=== PATIENT | male | born 1960 | race Caucasian/White ===

== ENCOUNTER 2022-08-16 12:09 | Day surgery (SDC) | payer BC ==
[2022-08-16] VITALS (8 sets, daily range): BP systolic 116–140; BP diastolic 82–98
[~2022-08-16] VITALS: Ht 177.8 cm; Wt 118.3 kg
[~2022-08-16 12:09] MED LIST: AMOX1TAB15 PO; FURO-150 PO; GABA300C PO; HYDR-3972 PO; RIVA15TA PO; famotidine 20mg tablet PO ONE; ringers solution, lacted 1,000 ML IV SCH
[2022-08-16] MEDS ORDERED: ceFAZolin inj. 2,000 MG in dextrose 5%-water 100 ML IV ONE (12:35)
[2022-08-16 13:22] LABS: BASOPHILS # (AUTO) 0.1 X10'3 (0-0.2); BASOPHILS % (AUTO) 1.1 % (0-1); EOSINOPHILS % (AUTO) 0.5 % (0-6); LYMPHOCYTES # (AUTO) 1.2 X10'3 (1.1-4.8); LYMPHOCYTES % (AUTO) 13.5 % (21-51); MEAN CORPUSCULAR HGB CONC 32.4 g/dL (33.0-36.5); MEAN CORPUSCULAR VOLUME 98.7 FL (78-98); MEAN PLATELET VOLUME 7.5 FL (7.4-10.4); MONOCYTES % (AUTO) 11.2 % (2-12); NEUTROPHILS # (AUTO) 6.4 X10'3 (1.8-7.7); NEUTROPHILS % (AUTO) 73.7 % (42-75); PRE OP HEMATOCRIT 41.9 % (42.0-52.0); PRE OP HEMOGLOBIN 13.6 g/dL (14.0-17.9); PRE OP PLATELET COUNT 362 X10'3 (140-440); RED BLOOD COUNT 4.24 X10'6 (4.70-6.10); RED CELL DISTRIBUTION WIDTH 15.3 % (11.5-14.5)
[2022-08-16 13:26] LABS: ALBUMIN 2.3 G/DL (3.4-5.0); ALBUMIN/GLOBULIN RATIO 0.5 (1.1-1.5); ALKALINE PHOSPHATASE 88 IU/L (46-116); BLOOD UREA NITROGEN 14 MG/DL (7-18); BUN/CREATININE RATIO 12.7 (5.4-32.0); CALCIUM 8.9 MG/DL (8.5-10.1); CHLORIDE 100 MMOL/L (99-107); PRE OP ALT 19 U/L (30-65); PRE OP ANION GAP 6 (8-16); PRE OP AST 21 U/L (10-37); PRE OP BILIRUB, TOTAL 0.5 MG/DL (0.0-1.0); PRE OP GLUCOSE 119 MG/DL (70-104); PRE OP POTASSIUM 3.9 MMOL/L (3.4-5.1); PRE OP SODIUM 139 MMOL/L (135-145); TOTAL CARBON DIOXIDE 33.3 MMOL/L (24-32); TOTAL PROTEIN 6.9 G/DL (6.4-8.2); eGFR 68 ML/MIN
[2022-08-16] MEDS ORDERED: METO-395 PO (13:27)
[2022-08-16] MEDS ORDERED: bacitracin 15gm ointment TP ONE (14:44)
[2022-08-16] MEDS ORDERED: sevoflurane 250ml liquid IH ONE (14:51)
[2022-08-16] MEDS ORDERED: hydrALAZINE 20mg/ml inj. IV PRN (14:55)
[2022-08-16] MEDS ORDERED: acetaminophen 1,000mg/100ml IV 100 ML IV PRN (14:55)
[2022-08-16] MEDS ORDERED: labetalol 20mg/4ml (5mg/ml) syringe IV PRN (14:55)
[2022-08-16] MEDS ORDERED: morphine 4 MG/ML inj SYRINge IV PRN (14:55)
[2022-08-16] MEDS ORDERED: ringers solution, lacted 1,000 ML IV SCH (14:55)
[2022-08-16] MEDS ORDERED: meperidine/PF 25mg/ml syringe IV PRN ×3 (14:55)
[2022-08-16] MEDS ORDERED: ondansetron/PF 4mg/2ml inj IV PRN (14:55)
[2022-08-16] MEDS ORDERED: proCHLORperazine 10 MG/2 ml inj IV PRN (14:55)
[2022-08-16] MEDS ORDERED: morphine 2 MG/ML inj. syringe IV PRN (14:55)
[2022-08-16] MEDS ORDERED: fentaNYL/PF 50MCG/1 ML 2ML syringe ONE (15:02)
[2022-08-16] MEDS ORDERED: midazolam 1 mg/ML 2ml injection ONE (15:04)
[2022-08-16] MEDS ORDERED: LIDOcaine 2% (20mg/ml) 5ml vial ONE (15:10)
[2022-08-16] MEDS ORDERED: propofol inj 20 ML IV ONE (15:10)
[2022-08-16] MEDS ORDERED: ondansetron/PF 4mg/2ml inj ONE (15:22)
[2022-08-16] MEDS ORDERED: dexamethasone sod phosphate 4mg/ml inj. ONE (15:22)
--- NOTE | 2022-08-16 15:52 | NUR ---
Received from OR via , accompanied by Anesthesiologist DR TAYLOR and report given by Anesthesiolgist. PT PRESENTS WITH 20G RIGHT HAND, LOWER LEFT LEG DRESSING CDI, VSS. Addendum: 08/16/22 at 1559 by Yamilet Aldrich RN, RN Amended: Links added.
--- NOTE | 2022-08-16 16:52 | NUR ---
ALL DISCHARGE CRITERIA HAS BEEN MET. VSS, PAIN AT A TOLERABLE LEVEL, VOIDING AND ABLE TO SAFELY AMBULATE AND TRANSFER SELF. IV TAKEN OUT WITHOUT ANY COMPLICATIONS. ALL DISCHARGE INSTRUCTIONS COVERED WITH PATIENT AND ALL QUESTIONS ANSWERED. PATIENT TAKEN OUT VIA WHEELCHAIR TO PERSONAL VEHICLE WHERE FAMILY/FRIEND DROVE PATIENT HOME. Addendum: 08/16/22 at 1659 by Yamilet Aldrich RN, RN Amended: Links added.
== END 2022-08-16 16:52 | disposition home or self-care (01) ==
LOC: PAS 12:09
PROVIDERS: ATTEND Surgery
DX: I89.8 Other specified noninfective disorders of lymphatic vessels and lymph nodes (principal); L76.32 Postprocedural hematoma of skin and subcutaneous tissue following other procedure; I10 Essential (primary) hypertension; I48.91 Unspecified atrial fibrillation; Z79.899 Other long term (current) drug therapy; Z98.890 Other specified postprocedural states
CPT/HCPCS: 10140; 36415; 80053; 82948; 85025; 87070; 87075; 87077; 87186; 93005; J0690; J1100; J2250; J2405; J2704; J3010; J3490; J7030; J7060; J7120; Z7506; Z7508; Z7512; A4618; A6446; A7000

== ENCOUNTER 2024-05-25 10:41 | Emergency (ER) | payer BC ==
[~2024-05-25] VITALS: Ht 175.3 cm; Wt 62.5 kg
[~2024-05-25 10:41] MED LIST changes: +METO-395 PO; -famotidine 20mg tablet PO ONE; -ringers solution, lacted 1,000 ML IV SCH
[2024-05-25] MEDS: HYDROcodone/acetaminophen 10/325mg tab PO ONE (13:09)
[2024-05-25] MEDS ORDERED: HYDR-3973 PO (14:18)
[2024-05-25 15:01] VITALS: BP 141/99; PULSE 79; RESP 12; TEMP 97.9; O2SAT 97
== END 2024-05-25 15:03 | disposition home or self-care (01) ==
LOC: ER 10:41
DX: M25.552 Pain in left hip (principal); M25.551 Pain in right hip; Z88.8 Allergy status to other drugs, medicaments and biological substances; Z79.2 Long term (current) use of antibiotics; Z79.899 Other long term (current) drug therapy
CPT/HCPCS: 73522; 99284

== ENCOUNTER 2024-09-04 09:46 | Inpatient (IN) | payer BC ==
[2024-09-04] VITALS (18 sets, daily range): BP systolic 118–141; BP diastolic 51–90; PULSE 58–84; RESP 12–20; TEMP 97.5–97.8; O2SAT 95–100
[~2024-09-04] VITALS: Ht 175.3 cm; Wt 113.5 kg
[~2024-09-04 09:46] MED LIST changes: -HYDR-3972 PO
[2024-09-04] MEDS ORDERED: VANCOMYCIN 1,500MG inj. 1,500 MG in normal saline 500ml IV soln 300 ML IV STA (10:47)
[2024-09-04] MEDS: normal saline 1000ml 1,000 ML IV ONE (11:30)
[2024-09-04] MEDS: piperacillin/tazo 4.5gm/100ml 100 ML IV STA (11:30)
[2024-09-04] MEDS: VANCOMYCIN/H2O 1.5g/300mL PB 300 ML IV STA (11:30)
[2024-09-04 11:59] LABS: BASOPHILS # (AUTO) 0.1 X10'3 (0-0.2); BASOPHILS % (AUTO) 0.8 % (0-1); EOSINOPHILS # (AUTO) 0.1 X10'3 (0-0.9); EOSINOPHILS % (AUTO) 1.5 % (0-6); HEMATOCRIT 33.1 % (42.0-52.0); HEMOGLOBIN 10.7 g/dl (14.0-17.9); LYMPHOCYTES # (AUTO) 0.8 X10'3 (1.1-4.8); LYMPHOCYTES % (AUTO) 9.8 % (21-51); MEAN CORPUSCULAR HEMOGLOBIN 31.4 PG (27.0-31.0); MEAN CORPUSCULAR HGB CONC 32.5 g/dL (33.0-36.5); MEAN CORPUSCULAR VOLUME 96.8 FL (78-98); MEAN PLATELET VOLUME 7.5 FL (7.4-10.4); MONOCYTES # (AUTO) 0.7 X10'3 (0-0.9); MONOCYTES % (AUTO) 8.6 % (2-12); NEUTROPHILS # (AUTO) 6.7 X10'3 (1.8-7.7); NEUTROPHILS % (AUTO) 79.3 % (42-75); PLATELET COUNT 451 X10'3 (140-440); RED BLOOD COUNT 3.42 X10'6 (4.70-6.10); RED CELL DISTRIBUTION WIDTH 15.8 % (11.5-14.5); WHITE BLOOD COUNT 8.4 X10'3 (4.5-11.0)
[2024-09-04 12:17] LABS: ALANINE AMINOTRANSFERASE 19 U/L (12-78); ALBUMIN 2.4 G/DL (3.4-5.0); ALBUMIN/GLOBULIN RATIO 0.6 (1.1-1.5); ALKALINE PHOSPHATASE 93 IU/L (46-116); ANION GAP 6 (8-16); ASPARTATE AMINO TRANSFERASE 18 U/L (10-37); BILIRUBIN,TOTAL 0.5 MG/DL (0.1-1.0); BLOOD UREA NITROGEN 16 MG/DL (7-18); BUN/CREATININE RATIO 15.4 (10.0-20.0); CHLORIDE 106 MMOL/L (99-107); CREATININE 1.04 MG/DL (0.60-1.10); GLUCOSE 98 MG/DL (70-104); POTASSIUM 4.2 MMOL/L (3.5-5.1); SODIUM 142 MMOL/L (135-145); TOTAL CARBON DIOXIDE 30.4 MMOL/L (24-32); TOTAL PROTEIN 6.4 G/DL (6.4-8.2); eCRCL 72 ML/MIN; eGFR 72 ML/MIN
[2024-09-04] MEDS: oxyCODONE/APAP 10/325mg tablet PO ONE (12:29)
[2024-09-04] MEDS ORDERED: iohexol 350 MG/ML 50ML vial IV ONE (12:37)
[2024-09-04] MEDS ORDERED: iohexol 350MG/ML 100ml bottle IV ONE (12:37)
[2024-09-04] MEDS ORDERED: potassium Cl 40MEQ/1/2NS 520ml 520 ML IV PRN (12:40)
[2024-09-04] MEDS ORDERED: magnesium sulf-water 4G/100mL 100 ML IV PRN (12:40)
[2024-09-04] MEDS ORDERED: HYDROcodone/acetaminophen 5mg/325mg tablet PO PRN (12:40)
[2024-09-04] MEDS ORDERED: ondansetron/PF 4mg/2ml inj IV PRN ×2 (12:40→15:55)
[2024-09-04] MEDS ORDERED: magnesium sulf-water 2g/50mL 50 ML IV PRN (12:40)
[2024-09-04] MEDS ORDERED: potassium Cl 20 mEq SR tablet PO PRN ×2 (12:40)
[2024-09-04] MEDS ORDERED: morphine 2 MG/ML inj. syringe IV PRN ×2 (12:40→15:55)
[2024-09-04] MEDS ORDERED: acetaminophen 325mg tablet PO PRN ×2 (12:40)
[2024-09-04] MEDS ORDERED: magnesium Cl slow-release 64mg tablet PO PRN (12:40)
[2024-09-04] MEDS ORDERED: BUPR150T8 PO (12:56)
[2024-09-04] MEDS ORDERED: CLOP75TA34 PO (12:56)
[2024-09-04] MEDS ORDERED: FLO0.4C PO (12:57)
[2024-09-04] MEDS ORDERED: THIA50TA10 PO (12:58)
[2024-09-04] MEDS ORDERED: ATOR20TA66 PO (12:58)
[2024-09-04] MEDS ORDERED: sevoflurane 250ml liquid IH ONE (15:18)
[2024-09-04] MEDS ORDERED: midazolam 1 mg/ML 2ml injection ONE (15:25)
[2024-09-04] MEDS ORDERED: LIDOcaine 2% (20mg/ml) 5ml vial ONE (15:46)
[2024-09-04] MEDS ORDERED: ceFAZolin 1000mg inj ONE ×3 (15:46)
[2024-09-04] MEDS ORDERED: rocuronium 10mg/ml inj IV ONE (15:46)
[2024-09-04] MEDS ORDERED: ondansetron/PF 4mg/2ml inj ONE (15:46)
[2024-09-04] MEDS ORDERED: fentaNYL /PF 50mcg/ml 5ml ampule ONE (15:46)
[2024-09-04] MEDS ORDERED: propofol inj 20 ML IV ONE (15:46)
[2024-09-04] MEDS ORDERED: heparin 10,000 units/1 ML INJ ONE (15:50)
[2024-09-04] MEDS ORDERED: iohexol 300 MG/1 ML 50ml polymer ONE (15:51)
[2024-09-04] MEDS ORDERED: hydrALAZINE 20mg/ml inj. IV PRN (15:55)
[2024-09-04] MEDS ORDERED: proCHLORperazine 10 MG/2 ml inj IV PRN (15:55)
[2024-09-04] MEDS ORDERED: meperidine/PF 25mg/ml syringe IV PRN ×3 (15:55)
[2024-09-04] MEDS ORDERED: morphine 4 MG/ML inj SYRINge IV PRN (15:55)
[2024-09-04] MEDS ORDERED: labetalol 20mg/4ml (5mg/ml) syringe IV PRN (15:55)
[2024-09-04] MEDS: heparin 10,000 units/1 ML INJ IV ONE (16:07)
[2024-09-04] MEDS ORDERED: neostigmine methylsulfate 1 MG/ML 10ml vial ONE (16:22)
[2024-09-04] MEDS ORDERED: glycopyrrolate 0.2mg/ml inj ONE (16:22)
[2024-09-04] MEDS: acetaminophen 1,000mg/100ml IV 100 ML IV ONE (16:47)
[2024-09-04] MEDS: oxyCODONE/APAP 10/325mg tablet PO PRN (19:26)
[2024-09-04] MEDS: ringers solution, lacted 1,000 ML IV SCH (19:31)
[2024-09-04] MEDS ORDERED: furosemide 20 MG/2 ML vial IV SCH (20:00)
[2024-09-04] MEDS ORDERED: heparin, porcine 5000 units/ml vial SQ SCH (20:00)
[2024-09-04] MEDS: hydrocortisone 1% cream 28gm TP SCH (22:12)
[2024-09-04] MEDS: morphine 2 MG/ML inj. syringe IV PRN (22:17)
[2024-09-04] MEDS: VANCOMYCIN/WATER FOR INJ (PEG) 1.25GM/250 ML IVPB IV SCH (22:31)
[2024-09-05] VITALS (8 sets, daily range): BP systolic 102–137; BP diastolic 53–90; PULSE 62–77; RESP 16–20; TEMP 97.7–99.6; O2SAT 92–98
[2024-09-05] MEDS: piperacillin/tazo 3.375gm/50ml 50 ML IV SCH (00:56)
[2024-09-05] MEDS: HYDROcodone/acetaminophen 10/325mg tab PO PRN (01:10)
[2024-09-05] MEDS: HALLS - SOOTHE MENTHOL 1.8 MG cough drop LOZENGE MM PRN (02:14)
[2024-09-05 07:31] LABS: BASOPHILS % (AUTO) 0.1 % (0-1); EOSINOPHILS % (AUTO) 0 % (0-6); HEMATOCRIT 32.7 % (42.0-52.0); HEMOGLOBIN 10.3 g/dl (14.0-17.9); LYMPHOCYTES # (AUTO) 0.6 X10'3 (1.1-4.8); LYMPHOCYTES % (AUTO) 4.4 % (21-51); MEAN CORPUSCULAR HEMOGLOBIN 30.6 PG (27.0-31.0); MEAN CORPUSCULAR HGB CONC 31.4 g/dL (33.0-36.5); MEAN CORPUSCULAR VOLUME 97.5 FL (78-98); MEAN PLATELET VOLUME 7.7 FL (7.4-10.4); MONOCYTES # (AUTO) 0.8 X10'3 (0-0.9); MONOCYTES % (AUTO) 5.8 % (2-12); NEUTROPHILS # (AUTO) 11.8 X10'3 (1.8-7.7); NEUTROPHILS % (AUTO) 89.7 % (42-75); PLATELET COUNT 432 X10'3 (140-440); RED BLOOD COUNT 3.35 X10'6 (4.70-6.10); RED CELL DISTRIBUTION WIDTH 15.9 % (11.5-14.5); WHITE BLOOD COUNT 13.1 X10'3 (4.5-11.0)
[2024-09-05 07:49] LABS: ALANINE AMINOTRANSFERASE 13 U/L (12-78); ALBUMIN 2.1 G/DL (3.4-5.0); ALBUMIN/GLOBULIN RATIO 0.6 (1.1-1.5); ALKALINE PHOSPHATASE 74 IU/L (46-116); ANION GAP 5 (8-16); ASPARTATE AMINO TRANSFERASE 19 U/L (10-37); BILIRUBIN,TOTAL 0.4 MG/DL (0.1-1.0); BLOOD UREA NITROGEN 14 MG/DL (7-18); BUN/CREATININE RATIO 12.8 (10.0-20.0); CALCIUM 8.5 MG/DL (8.5-10.1); CHLORIDE 103 MMOL/L (99-107); CREATININE 1.09 MG/DL (0.60-1.10); GLUCOSE 124 MG/DL (70-104); POTASSIUM 4.7 MMOL/L (3.5-5.1); SODIUM 138 MMOL/L (135-145); TOTAL CARBON DIOXIDE 29.9 MMOL/L (24-32); TOTAL PROTEIN 5.8 G/DL (6.4-8.2); eCRCL 68 ML/MIN; eGFR 68 ML/MIN
[2024-09-05] MEDS: rivaroxaban 15mg tablet PO SCH (17:37)
[2024-09-05] MEDS: VANCOMYCIN LEVEL IV ONE (22:30)
[2024-09-06] VITALS (7 sets, daily range): BP systolic 92–110; BP diastolic 48–70; PULSE 59–70; RESP 12–19; TEMP 97.6–98.6; O2SAT 95–98
[2024-09-06 07:22] LABS: BASOPHILS # (AUTO) 0.1 X10'3 (0-0.2); BASOPHILS % (AUTO) 0.6 % (0-1); EOSINOPHILS % (AUTO) 0.3 % (0-6); HEMATOCRIT 32.6 % (42.0-52.0); HEMOGLOBIN 10.6 g/dl (14.0-17.9); LYMPHOCYTES # (AUTO) 1.3 X10'3 (1.1-4.8); LYMPHOCYTES % (AUTO) 13.9 % (21-51); MEAN CORPUSCULAR HEMOGLOBIN 31.6 PG (27.0-31.0); MEAN CORPUSCULAR HGB CONC 32.5 g/dL (33.0-36.5); MEAN CORPUSCULAR VOLUME 97.2 FL (78-98); MEAN PLATELET VOLUME 7.7 FL (7.4-10.4); MONOCYTES % (AUTO) 10.5 % (2-12); NEUTROPHILS % (AUTO) 74.7 % (42-75); PLATELET COUNT 456 X10'3 (140-440); RED BLOOD COUNT 3.36 X10'6 (4.70-6.10); RED CELL DISTRIBUTION WIDTH 15.7 % (11.5-14.5); WHITE BLOOD COUNT 9.3 X10'3 (4.5-11.0)
[2024-09-06 07:26] LABS: ALANINE AMINOTRANSFERASE 11 U/L (12-78); ALBUMIN 2.2 G/DL (3.4-5.0); ALBUMIN/GLOBULIN RATIO 0.6 (1.1-1.5); ALKALINE PHOSPHATASE 77 IU/L (46-116); ANION GAP 4 (8-16); ASPARTATE AMINO TRANSFERASE 17 U/L (10-37); BILIRUBIN,TOTAL 0.3 MG/DL (0.1-1.0); BLOOD UREA NITROGEN 14 MG/DL (7-18); BUN/CREATININE RATIO 12.7 (10.0-20.0); CALCIUM 8.3 MG/DL (8.5-10.1); CHLORIDE 103 MMOL/L (99-107); GLUCOSE 81 MG/DL (70-104); POTASSIUM 4.5 MMOL/L (3.5-5.1); SODIUM 138 MMOL/L (135-145); TOTAL CARBON DIOXIDE 31.2 MMOL/L (24-32); TOTAL PROTEIN 5.9 G/DL (6.4-8.2); eCRCL 68 ML/MIN; eGFR 67 ML/MIN
[2024-09-06] MEDS: clopidogrel 75mg tablet PO SCH (08:09)
[2024-09-06] MEDS: magnesium hydroxide 30ml (MOM) UD suspension PO ONE (10:55)
[2024-09-06 12:36] LABS: PRO BRAIN NATRIURETIC PEPTIDE 1382 PG/ML (0-125)
[2024-09-06] MEDS: furosemide 20MG tablet PO SCH (19:15)
[2024-09-06] MEDS: docusate sod 100mg capsule PO SCH (20:51)
[2024-09-06] MEDS: buPROPion SR 150mg tablet PO SCH (20:51)
[2024-09-06] MEDS: LORazepam 2 mg/ml vial IV ONE (23:13)
[2024-09-07 06:00] VITALS: BP 96/69; PULSE 72; RESP 19; TEMP 97.6; O2SAT 95
[2024-09-07] MEDS: atorvastatin 20mg tablet PO SCH (07:15)
[2024-09-07 07:27] LABS: BASOPHILS # (AUTO) 0.1 X10'3 (0-0.2); EOSINOPHILS # (AUTO) 0.1 X10'3 (0-0.9); EOSINOPHILS % (AUTO) 1.4 % (0-6); HEMOGLOBIN 11.3 g/dl (14.0-17.9); LYMPHOCYTES # (AUTO) 1.1 X10'3 (1.1-4.8); LYMPHOCYTES % (AUTO) 12.7 % (21-51); MEAN CORPUSCULAR HEMOGLOBIN 30.3 PG (27.0-31.0); MEAN CORPUSCULAR HGB CONC 31.3 g/dL (33.0-36.5); MEAN CORPUSCULAR VOLUME 96.9 FL (78-98); MEAN PLATELET VOLUME 7.4 FL (7.4-10.4); MONOCYTES % (AUTO) 12.2 % (2-12); NEUTROPHILS # (AUTO) 6.1 X10'3 (1.8-7.7); NEUTROPHILS % (AUTO) 72.7 % (42-75); PLATELET COUNT 428 X10'3 (140-440); RED BLOOD COUNT 3.72 X10'6 (4.70-6.10); RED CELL DISTRIBUTION WIDTH 16.2 % (11.5-14.5); WHITE BLOOD COUNT 8.4 X10'3 (4.5-11.0)
[2024-09-07 07:58] LABS: ANION GAP 7 (8-16); BILIRUBIN,TOTAL 0.5 MG/DL (0.1-1.0); BLOOD UREA NITROGEN 14 MG/DL (7-18); CALCIUM 8.7 MG/DL (8.5-10.1); CHLORIDE 102 MMOL/L (99-107); CREATININE 1.08 MG/DL (0.60-1.10); GLUCOSE 83 MG/DL (70-104); POTASSIUM 4.3 MMOL/L (3.5-5.1); SODIUM 140 MMOL/L (135-145); TOTAL CARBON DIOXIDE 30.6 MMOL/L (24-32); eCRCL 69 ML/MIN; eGFR 69 ML/MIN
[2024-09-07 07:59] LABS: ALANINE AMINOTRANSFERASE 12 U/L (12-78); ALBUMIN 2.3 G/DL (3.4-5.0); ALBUMIN/GLOBULIN RATIO 0.6 (1.1-1.5); ALKALINE PHOSPHATASE 71 IU/L (46-116); ASPARTATE AMINO TRANSFERASE 19 U/L (10-37); TOTAL PROTEIN 6.2 G/DL (6.4-8.2)
[2024-09-07 08:00] VITALS: BP_SYST 69
[2024-09-07] MEDS: tamsulosin 0.4mg capsule PO SCH (08:41)
[2024-09-07] MEDS ORDERED: vancomycin/NS 1 GM ADD-VANTAGE 250 ML IV SCH (10:57)
[2024-09-07] MEDS: levoFLOXACIN 500mg tablet PO SCH (11:00)
[2024-09-07] MEDS ORDERED: VANCOMYCIN 1GM 200ML H20 (PEG) 200 ML IV SCH ×2 (11:05→11:07)
[2024-09-07] MEDS: VANCOMYCIN/WATER FOR INJ (PEG) 1.25GM/250 ML IVPB IV SCH (11:44)
[2024-09-07] MEDS: metroNIDAZOLE 500mg tablet PO SCH (13:16)
[2024-09-07 18:00] VITALS: BP 118/76; PULSE 59; RESP 16; TEMP 97.8; O2SAT 97
[2024-09-07 20:00] VITALS: BP_SYST 118; BP_SYST 120; BP_DIAS 76; BP_DIAS 85; PULSE 59; PULSE 72; PULSE 84; RESP 18
[2024-09-07 22:00] VITALS: BP 120/85; PULSE 84; RESP 19; TEMP 97.5; O2SAT 96
[2024-09-07] MEDS: magnesium hydroxide 30ml (MOM) UD suspension PO PRN (22:38)
[2024-09-07] MEDS: LORazepam 1 MG tablet PO PRN (22:38)
[2024-09-08 03:44] LABS: BASOPHILS # (AUTO) 0.1 X10'3 (0-0.2); EOSINOPHILS # (AUTO) 0.1 X10'3 (0-0.9); EOSINOPHILS % (AUTO) 0.9 % (0-6); HEMATOCRIT 32.9 % (42.0-52.0); HEMOGLOBIN 10.6 g/dl (14.0-17.9); LYMPHOCYTES # (AUTO) 1.2 X10'3 (1.1-4.8); LYMPHOCYTES % (AUTO) 12.1 % (21-51); MEAN CORPUSCULAR HEMOGLOBIN 31.1 PG (27.0-31.0); MEAN CORPUSCULAR HGB CONC 32.3 g/dL (33.0-36.5); MEAN CORPUSCULAR VOLUME 96.3 FL (78-98); MEAN PLATELET VOLUME 7.6 FL (7.4-10.4); MONOCYTES # (AUTO) 1.1 X10'3 (0-0.9); MONOCYTES % (AUTO) 11.3 % (2-12); NEUTROPHILS # (AUTO) 7.3 X10'3 (1.8-7.7); NEUTROPHILS % (AUTO) 74.7 % (42-75); PLATELET COUNT 416 X10'3 (140-440); RED BLOOD COUNT 3.41 X10'6 (4.70-6.10); RED CELL DISTRIBUTION WIDTH 16.2 % (11.5-14.5); WHITE BLOOD COUNT 9.8 X10'3 (4.5-11.0)
[2024-09-08 04:00] LABS: ALANINE AMINOTRANSFERASE 12 U/L (12-78); ALBUMIN 2.2 G/DL (3.4-5.0); ALBUMIN/GLOBULIN RATIO 0.6 (1.1-1.5); ALKALINE PHOSPHATASE 69 IU/L (46-116); ANION GAP 11 (8-16); ASPARTATE AMINO TRANSFERASE 17 U/L (10-37); BILIRUBIN,TOTAL 0.7 MG/DL (0.1-1.0); BLOOD UREA NITROGEN 14 MG/DL (7-18); CALCIUM 8.5 MG/DL (8.5-10.1); CHLORIDE 105 MMOL/L (99-107); CREATININE 1.17 MG/DL (0.60-1.10); GLUCOSE 102 MG/DL (70-104); POTASSIUM 3.8 MMOL/L (3.5-5.1); SODIUM 143 MMOL/L (135-145); TOTAL CARBON DIOXIDE 26.9 MMOL/L (24-32); TOTAL PROTEIN 5.8 G/DL (6.4-8.2); eCRCL 64 ML/MIN; eGFR 63 ML/MIN
[2024-09-08 08:00] VITALS: BP 98/59
[2024-09-08] MEDS: lactose-reduced food (Ensure Enlive) - 237ml bottle PO SCH (17:33)
[2024-09-08 18:00] VITALS: BP 98/67; PULSE 72; RESP 18; TEMP 97.7; O2SAT 97
[2024-09-08 20:00] VITALS: RESP 18; O2SAT 96
[2024-09-08 22:00] VITALS: BP_SYST 122; BP_SYST 124; BP_DIAS 69; BP_DIAS 78; PULSE 72; PULSE 76; RESP 16; TEMP 97.6; O2SAT 99
[2024-09-09 06:10] LABS: BASOPHILS # (AUTO) 0.1 X10'3 (0-0.2); BASOPHILS % (AUTO) 0.8 % (0-1); EOSINOPHILS # (AUTO) 0.1 X10'3 (0-0.9); EOSINOPHILS % (AUTO) 1.8 % (0-6); HEMATOCRIT 31.4 % (42.0-52.0); HEMOGLOBIN 10.3 g/dl (14.0-17.9); LYMPHOCYTES # (AUTO) 0.9 X10'3 (1.1-4.8); MEAN CORPUSCULAR HEMOGLOBIN 31.1 PG (27.0-31.0); MEAN CORPUSCULAR HGB CONC 32.6 g/dL (33.0-36.5); MEAN CORPUSCULAR VOLUME 95.4 FL (78-98); MEAN PLATELET VOLUME 7.6 FL (7.4-10.4); MONOCYTES % (AUTO) 13.5 % (2-12); NEUTROPHILS # (AUTO) 5.4 X10'3 (1.8-7.7); NEUTROPHILS % (AUTO) 71.9 % (42-75); PLATELET COUNT 369 X10'3 (140-440); RED CELL DISTRIBUTION WIDTH 16.3 % (11.5-14.5); WHITE BLOOD COUNT 7.5 X10'3 (4.5-11.0)
[2024-09-09 06:41] LABS: ALANINE AMINOTRANSFERASE 12 U/L (12-78); ALBUMIN 2.1 G/DL (3.4-5.0); ALBUMIN/GLOBULIN RATIO 0.6 (1.1-1.5); ALKALINE PHOSPHATASE 72 IU/L (46-116); ANION GAP 5 (8-16); ASPARTATE AMINO TRANSFERASE 20 U/L (10-37); BILIRUBIN,TOTAL 0.5 MG/DL (0.1-1.0); BLOOD UREA NITROGEN 16 MG/DL (7-18); BUN/CREATININE RATIO 15.7 (10.0-20.0); CALCIUM 8.2 MG/DL (8.5-10.1); CHLORIDE 105 MMOL/L (99-107); CREATININE 1.02 MG/DL (0.60-1.10); GLUCOSE 101 MG/DL (70-104); POTASSIUM 3.6 MMOL/L (3.5-5.1); SODIUM 140 MMOL/L (135-145); TOTAL CARBON DIOXIDE 30.2 MMOL/L (24-32); TOTAL PROTEIN 5.6 G/DL (6.4-8.2); eCRCL 73 ML/MIN; eGFR 74 ML/MIN
[2024-09-09 08:55] VITALS: RESP 14; O2SAT 98
[2024-09-09 10:31] VITALS: BP 104/73; PULSE 62; RESP 14; TEMP 97.6; O2SAT 100
[2024-09-09 13:54] VITALS: RESP 14; O2SAT 97
== END 2024-09-09 15:30 | DRG 863 ==
LOC: ER 09:47 → ED HOLD 12:42 → ORTHO 4S 19:08
PROVIDERS: ADMIT Internal Medicine; ATTEND Internal Medicine
PROC: 0HD7XZZ Extraction of Abdomen Skin, External Approach (ICD-10-PCS; 2024-09-04)
PROC: B4201ZZ Computerized Tomography (CT Scan) of Abdominal Aorta using Low Osmolar Contrast (ICD-10-PCS; 2024-09-04)
PROC: B4241ZZ Computerized Tomography (CT Scan) of Superior Mesenteric Artery using Low Osmolar Contrast (ICD-10-PCS; 2024-09-04)
PROC: B4281ZZ Computerized Tomography (CT Scan) of Bilateral Renal Arteries using Low Osmolar Contrast (ICD-10-PCS; 2024-09-04)
PROC: B42H1ZZ Computerized Tomography (CT Scan) of Bilateral Lower Extremity Arteries using Low Osmolar Contrast (ICD-10-PCS; 2024-09-04)
PROC: B4211ZZ Computerized Tomography (CT Scan) of Celiac Artery using Low Osmolar Contrast (ICD-10-PCS; 2024-09-04)
PROC: B42H1ZZ Computerized Tomography (CT Scan) of Bilateral Lower Extremity Arteries using Low Osmolar Contrast (ICD-10-PCS; 2024-09-04)
PROC: 0Y9D3ZZ Drainage of Left Upper Leg, Percutaneous Approach (ICD-10-PCS; principal; 2024-09-04 15:18)
PROC: 05HF33Z Insertion of Infusion Device into Left Cephalic Vein, Percutaneous Approach (ICD-10-PCS; 2024-09-07)
DX: T81.41XA Infection following a procedure, superficial incisional surgical site, initial encounter (principal); L03.115 Cellulitis of right lower limb; T81.30XA Disruption of wound, unspecified, initial encounter; I73.9 Peripheral vascular disease, unspecified; I48.91 Unspecified atrial fibrillation; I10 Essential (primary) hypertension; I25.10 Atherosclerotic heart disease of native coronary artery without angina pectoris; E78.5 Hyperlipidemia, unspecified; Y83.8 Other surgical procedures as the cause of abnormal reaction of the patient, or of later complication, without mention of misadventure at the time of the procedure; Z79.01 Long term (current) use of anticoagulants; Z79.899 Other long term (current) drug therapy; Z88.6 Allergy status to analgesic agent; Y92.89 Other specified places as the place of occurrence of the external cause; Z87.891 Personal history of nicotine dependence
CPT/HCPCS: 96365; 96367; 99285; Z7506; Z7508; 36410; 36415; 71045; 75635; 76942; 80053; 80202; 83605; 83880; 84145; 85025; 85651; 87040; 87070; 87075; 87076; 87077; 87081; 87102; 87185; 87186; 93005; 93922; 93925; 93971; 97116; 97161; 97530; A4615; A4618; A6196; A6253; A6258; A6449; A6455; A7000; C1751; C1758; G0378; J0131; J0690; J1100; J1644; J2003; J2060; J2250; J2270; J2405; J2543; J2704; J2710; J3010; J3372; J3490; J7030; J7040; J7120; Q9967